=== PATIENT | male | born 1975 | race African-American/Black ===

== ENCOUNTER 2018-07-16 23:35 | Inpatient (IN) ==
[2018-07-17] MEDS ORDERED: NS 1,000 ML, NS 1,000 ML IV ONE ×2 (01:02)
[2018-07-17 01:49] LABS: BASO# 0.02 X1000 (0.0-0.2); BASO% 0.2 % (0.0-0.8); EOS# 0.28 X1000 (0.0-0.7); EOS% 3.2 % (0.0-10.0); HEMATOCRIT 44.9 % (42.0-52.0); HEMOGLOBIN 15.5 g/dL (14.0-18.0); LYMPH# 3.03 X1000 (1.2-3.4); LYMPH% 34.3 % (20.5-51.1); MCH 27.4 PG (27-31); MCHC 34.5 g/dL (33-37); MCV 79.5 FL (81-99); MONO# 0.91 X1000 (0.11-0.59); MONO% 10.3 % (1.7-9.3); MPV 9.2 FL (7.4-10.4); NEUT# 4.59 X1000 (1.4-6.5); PLT 280 X1000 (130-400); RBC 5.65 XMIL (4.7-6.1); WBC 8.83 X1000 (4.8-10.8)
[2018-07-17 01:52] LABS: URINE SOURCE CLEAN CATCH
[2018-07-17] MEDS: NS 1,000 ML IV SCH ×5 (01:53→21:25)
[2018-07-17 01:56] LABS: BILIRUBIN URINE NEGATIVE (NEGATIVE); BLOOD URINE TRACE (NEGATIVE); COLOR YELLOW; GLUCOSE URINE NEGATIVE (NEGATIVE); KETONE URINE NEGATIVE (NEGATIVE); LEUKOCYTES URINE NEGATIVE (NEGATIVE); NITRITE URINE NEGATIVE (NEGATIVE); PROTEIN URINE TRACE mg/dL (NEGATIVE); SP GRAVITY URINE 1.028; TURBIDITY URINE CLEAR (CLEAR); UR EPITHELIAL CELLS <10 /HPF (<10); URINE BACTERIA NEGATIVE /HPF; URINE RBC <10 /HPF (<10); URINE WBC <10 /HPF (<10); UROBILINOGEN URINE 2 mg/dL (NORMAL)
[2018-07-17 02:03] LABS: AGAP 14; ALB/GLOB RATIO 1.7; ALBUMIN 4.8 g/dL (3.5-5.0); ALKALINE PHOSPHATASE 101 U/L (32-122); BUN 24 mg/dL (8-22); CALCIUM 9.4 mg/dL (8.8-10.2); CHLORIDE 101 mmol/L (98-107); COSMO 286; CREATININE 1.3 mg/dL (0.7-1.2); ESTIMATED GFR > 60; GLUCOSE 150 mg/dL (70-104); GOT 42 U/L (10-34); GPT 33 U/L (10-44); POTASSIUM 3.7 mmol/L (3.5-5.1); SODIUM 140 mmol/L (136-145); TCO2 25 mmol/L (25-35); TOTAL BILIRUBIN 0.45 mg/dL (0.20-1.00); TOTAL PROTEIN 7.6 g/dL (6.3-8.3)
[2018-07-17 02:11] LABS: CK PROFILE 1630 U/L (24-204)
[2018-07-17 02:33] LABS: CK INDEX 0.5 (0.0-2.5); CK-MB 8.89 ng/mL (0.0-5.0)
--- NOTE | 2018-07-17 03:31 | PROVIDER DOCUMENTATION ---
This chart was entered by Taylor Albarado Scribe, acting as scribe for Nino Dowd MD. HPI-General Adult - General Chief Complaint: Heat Related Stated Complaint: DEHYDRATED Time Seen by Provider: 07/17/18 00:44 Source: patient Allergies/Adverse Reactions: Patient Allergies Allergy/AdvReac Type Severity Reaction Status Date / Time No Known Allergies Allergy Verified 12/03/17 00:59 Home Medications: Home Medication List Medication Instructions Recorded Confirmed Last Taken Type Cyclobenzaprine [Flexeril] 10 mg PO TID PRN PRN #10 tab 12/03/17 Unknown Rx Tramadol [Ultram] 50 mg PO Q6H PRN PRN #10 tab 12/03/17 Unknown Rx - History of Present Illness -Gen Adult Nature of Presenting Problems: 43 y/o male presents to ED with cough and generalized muscle cramps onset yesterday. Pt is alert and oriented. Location of Pain/Injury: reports: generalized Pain Radiation: reports: no radiation Quality of Pain: reports: cramping Severity: reports: mild Onset/Duration: reports: 24 hours ago Timing: reports: still present Context/Activities at Onset: reports: none Modifying Factors: improves with: nothing Associated Symptoms: reports: cough, other (generalized muscle cramps) Similar Symptoms Previously?: No Recently seen or treated by another doctor?: No Review of Systems - Adult - REVIEW OF SYSTEMS - ADULT Constitutional: denies: chills, fever Eyes: reports: no symptoms reported Ears, Nose, Mouth & Throat: reports: no symptoms reported Cardiovascular: denies: chest pain, palpitations Respiratory: reports: cough. denies: shortness of breath Gastrointestinal: denies: abdominal pain, diarrhea, nausea, vomiting Genitourinary: reports: no symptoms reported Musculoskeletal: reports: other (generalized muscle cramps). denies: back pain, joint pain Integumentary: reports: no symptoms reported Neurological: denies: dizziness/vertigo, seizure Psychiatric: reports: no symptoms reported Endocrine: reports: no symptoms reported Hematologic/Lymphatic: reports: no symptoms reported Allergic/Immunologic: reports: no symptoms reported All Other Systems: Reviewed and Negative Past History - Adult - PAST MEDICAL HISTORY-ADULT Review of Records: reports: Old Records Reviewed, Nursing Assessment Review, Medications Reviewed Major Childhood Illnesses: reports: denies history Cardiovascular: reports: HTN - PRIOR SURGERIES/PROCEDURES Surgical/Procedure History: reports: none - IMMUNIZATION STATUS Childhood Immunizations: See Nurse Assessment Flu Vaccine: See Nurse Assessment - FAMILY HISTORY Family History: reviewed, not pertinent - SOCIAL HISTORY Smoking: less than 1 pack/day Provider spent 3-5 mins advising pt. on dangers of tobacco.: Discussed manners to quit use, and f/u contacts for add'l counseling. Substance Use: none/never Alcohol Use Frequency: occasionally Living Situation: family Physical Exam-General - PHYSICAL EXAM-ADULT Initial Vital Signs Reviewed: Yes - CONSTITUTIONAL General Appearance: appears well, alert, no apparent distress - EYES Eyes: PERRL/EOMI, pink conjunctivae - HEAD, EARS, NOSE, MOUTH & THROAT HENMT: normocephalic/atraumatic, moist mucous membranes, normal ENT inspection - RESPIRATORY Respiratory: chest non-tender, lungs clear, normal breath sounds - CARDIOVASCULAR Cardiovascular: normal peripheral pulses, regular rate, rhythm - MUSCULOSKELETAL Back Exam: no CVA tenderness, no vertebral tenderness, other (diffuse muscular tenderness to palpation) Extremity: normal range of motion, normal gait, tenderness (diffuse muscular tenderness to palpation) - SKIN Integumentary: normal color, warm/dry - NEUROLOGIC Neurologic: grossly normal - PSYCHIATRIC Psych/Mental Status: normal mood/affect, normal thought content, normal thought process Progress - PLAN OF CARE/RESULTS Progress/Plan/Lab Results: Vital Signs - 8 hr 07/16/18 23:51 Temperature 98.1 F Pulse Rate 90 Respiratory Rate 18 Blood Pressure 124/86 O2 Sat by Pulse Oximetry 97 Orders Category Date Time Status CBC WITH DIFF [HEME] Stat Lab 07/17/18 01:02 Uncollected CK PROFILE [SP CHEM] Stat Lab 07/17/18 01:02 Uncollected COMPREHENSIVE METABOLIC PANEL [CHEM] Stat Lab 07/17/18 01:02 Uncollected URINALYSIS W/POSS RFLX CULT [URINALYSIS] Stat Lab 07/17/18 01:02 Uncollected 0.9% Sodium Chloride Inj [Ns] 1,000 ml Med 07/17/18 01:02 Active 0.9% Sodium Chloride Inj [Ns] 1,000 ml IV 999 mls/hr Laboratory Tests 07/17/18 07/17/18 00:05 01:45 WBC 8.83 RBC 5.65 Hgb 15.5 Hct 44.9 MCV 79.5 L MCH 27.4 MCHC 34.5 RDW Std Deviation 14.0 Plt Count 280 MPV 9.2 Immature Gran % (Auto) 0.0 Neut % (Auto) 52.0 Lymph % (Auto) 34.3 [place] % (Auto) 10.3 H Eos % (Auto) 3.2 Baso % (Auto) 0.2 Immature Gran # (Auto) 0.00 Neut # (Auto) 4.59 Lymph # (Auto) 3.03 [place] # (Auto) 0.91 H Eos # (Auto) 0.28 Baso # (Auto) 0.02 Urine Source CLEAN CATCH Urine Color YELLOW Urine Turbidity CLEAR Urine pH 6.0 Ur Specific [place] 1.028 Urine Protein TRACE A Ur Glucose (Stick) NEGATIVE Ur Ketones (Stick) NEGATIVE Urine Blood TRACE A Urine Nitrite NEGATIVE Urine Bilirubin NEGATIVE Urobilinogen Dipstick 2 A Urine Leukocytes NEGATIVE Urine WBC (Auto) <10 Urine RBC (Auto) <10 U Epithel Cells (Auto) <10 Urine Bacteria (Auto) NEGATIVE Result Diagrams: 07/17/18 00:05 07/17/18 00:05 - CONSULTS/PCP/HOSPITALIST Notification #1 *Consult/PCP/Hospitalist*: Enoch Time Discussed: 03:15 Consult Disposition: Will see in ED, Admit Departure - Departure Date of Disposition Decision: 07/17/18 Time of Disposition Decision: 02:30 DIAGNOSIS: Rhabdomyolysis Qualifiers: Rhabdomyolysis type: non-traumatic Qualified Code(s): M62.82 - Rhabdomyolysis Disposition: ADMITTED INPATIENT 09 Certified Medical Emergency: Emergent Condition: Good Referrals and Follow-Ups: Cayden Hernandez MD [Primary Care Provider] - Discharge Education: Steps to Quit Smoking, [id number] - Critical Care Note This patient required my direct & personal management of CC.: No Attestation - Physician/ SIRIA Attestation Patient care was provided by Advanced Practice Provider:: No The physician spent face to face time with patient:: Yes Advanced Practice Provider documentation review:: Supervising physician onsite and consulted in the evaluation and care of this patient. The physician did have a face to face encounter with the patient. This chart was documented by the indicated scribe, (Taylor Albarado, Bryce) and accurately reflects the services I performed and decisions made by , Nino Dowd MD, as attested by the provider's signature.
--- NOTE | 2018-07-17 05:22 | HISTORY AND PHYSICAL ---
PRIMARY CARE PHYSICIAN: Dr. Cayden Hernandez. CHIEF COMPLAINT: Muscles cramping. 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 States that he was having muscle cramps for the past 3 days. He states that it was extremely hot in the warehouse despite having fans. He felt weak and tired. He was drinking a lot of water, however, his muscles were still cramping. The patient subsequently had to come to the emergency department. He was evaluated. Laboratories drawn, which did show he had elevated creatine kinase suspicious for rhabdomyolysis. Due to his presenting symptoms, it was thought that he would need admission for further management. At the time of my examination, patient denied any headache, fever, chills, chest pain, shortness of breath, or any weight changes, but complained of muscle cramps. PAST MEDICAL HISTORY: Includes hypertension. PAST SURGICAL HISTORY: None. ALLERGIES: No known drug allergies. CURRENT MEDICATIONS: Norvasc 10 mg p.o. q.a.m., clonidine 0.1 mg p.o. b.i.d., [place] 10/325 one p.o. t.i.d., Ambien 10 mg p.o. at bedtime. SOCIAL HISTORY: A 20+ pack years history of smoking. History of alcohol use daily. Denies any illicit drug use. FAMILY HISTORY: No history of coronary disease. REVIEW OF SYSTEMS: Fourteen-point review of system is as in HPI. Other systems negative. PHYSICAL EXAMINATION: GENERAL: Cooperative, friendly male. He is resting comfortably now. VITAL SIGNS: Temperature 98.1 degrees, pulse 90, respirations 18, blood pressure 124/86. HEENT: Atraumatic, normocephalic. Extraocular movements intact. PERRLA. NECK: Supple. CHEST: Clear to auscultation. CARDIOVASCULAR: Regular rate and rhythm. S1, S2. ABDOMEN: Soft. Positive bowel sounds. EXTREMITIES: No edema. NEUROLOGIC: He is awake, alert, oriented x3. GENITOURINARY: No bladder distention. LABORATORIES AND STUDIES: Sodium 140, potassium 3.7, chloride 101, CO2 of 25, BUN is 24, creatinine 1.3. Glucose is 150, creatine kinase is 1630. WBCs 8.83, hemoglobin 15.5, hematocrit 44.9, platelets 218,000. ASSESSMENT: A 43-year-old male with a history of hypertension, who presented to the emergency department with 3 days history of having muscle cramps. 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 He was evaluated the emergency department. Laboratories were drawn and he had elevated creatine kinase. Subsequently, he will require admission for further management. 1. Heat exhaustion. 2. Dehydration. 3. Rhabdomyolysis. 4. Hypertension. PLAN: 1. We will admit patient to medical floor with telemetry. 2. Continue supportive treatment with IV fluids. Antiemetics as needed. 3. We will monitor his blood pressure closely. 4. We will continue to follow and reassess, make further recommendation based on patient's clinical course. cc: Ramon Kendall MD
[2018-07-17] MEDS ORDERED: ZOFRAN IV PRN (06:17)
[2018-07-17] MEDS: CATAPRES PO SCH ×2 (08:51→21:25)
[2018-07-17] MEDS: NORVASC PO SCH (08:51)
[2018-07-17] MEDS: NORCO-10 PO SCH ×3 (08:52→21:25)
[2018-07-18 07:27] LABS: BASO# 0.01 X1000 (0.0-0.2); BASO% 0.1 % (0.0-0.8); EOS# 0.33 X1000 (0.0-0.7); EOS% 4.2 % (0.0-10.0); HEMOGLOBIN 14.3 g/dL (14.0-18.0); LYMPH% 43.1 % (20.5-51.1); MCH 27.3 PG (27-31); MCHC 33.3 g/dL (33-37); MCV 82.1 FL (81-99); MONO# 0.83 X1000 (0.11-0.59); MONO% 10.5 % (1.7-9.3); MPV 9.5 FL (7.4-10.4); NEUT# 3.31 X1000 (1.4-6.5); NEUT% 42.1 % (42.2-75.2); PLT 266 X1000 (130-400); RBC 5.24 XMIL (4.7-6.1); RDW 14.5 % (11.5-14.5); WBC 7.88 X1000 (4.8-10.8)
[2018-07-18 07:50] LABS: AGAP 7; BUN 9 mg/dL (8-22); CALCIUM 8.6 mg/dL (8.8-10.2); CHLORIDE 107 mmol/L (98-107); CK PROFILE 1095 U/L (24-204); COSMO 275; CREATININE 0.9 mg/dL (0.7-1.2); ESTIMATED GFR > 60; GLUCOSE 103 mg/dL (70-104); POTASSIUM 4.3 mmol/L (3.5-5.1); SODIUM 138 mmol/L (136-145); TCO2 24 mmol/L (25-35)
[2018-07-18] MEDS: NORCO-10 PO SCH ×3 (08:10→22:05)
[2018-07-18] MEDS: CATAPRES PO SCH ×2 (08:11→22:05)
[2018-07-18] MEDS: NORVASC PO SCH (08:11)
[2018-07-18 08:31] LABS: CK INDEX 0.3 (0.0-2.5); CK-MB 3.76 ng/mL (0.0-5.0)
[2018-07-18] MEDS: NS 1,000 ML IV SCH ×2 (08:55→22:05)
--- NOTE | 2018-07-18 17:27 | PROGRESS NOTE ---
DATE: 07/18/2018 SUBJECTIVE: This patient seems to be doing better, but he is still complaining of generalized soreness, mostly muscular soreness. His urine looks more clear, but still a little bit concentrated. We will need to continue with more IV fluids. CK level is decreasing, and the kidney function normalized, but the CK is still high at 1095. CK-MB is normal today. Tomorrow hopefully we will send this patient home. OBJECTIVE: Vital Signs: Temperature 98.2 degrees, pulse 66, respiratory rate 18, blood pressure 134/83, oxygen saturation 98 on room air. HEENT: Head normocephalic. No trauma. PERRLA. Neck: Supple. No JVD. No masses. Central trachea. Chest: Clear to auscultation. No wheezing. No rales. Abdomen: Soft, nontender, nondistended. No hepatosplenomegaly. Extremities: No edema. No clubbing. No cyanosis. Neurological examination: The patient is alert. He is oriented x3. No focal deficits. LABORATORY DATA: WBC 7.8, hemoglobin 14.3, hematocrit 43, platelets 266,000. Sodium 138, potassium 4.3, chloride 107, bicarbonate 24, BUN 9, creatinine 0.9, glucose 103, calcium 8.6, CK 1095. ASSESSMENT: 1. Heat exhaustion. 2. Dehydration. 3. Rhabdomyolysis. 4. Hypertension. 5. Tobacco abuse. PLAN: Like I mentioned before, we will continue with IV fluids. Once the CK level is better, we will send this patient home likely tomorrow, kidney function normalized. We do have a previous creatinine from 2017 that was normal at 1, today 0.9, so likely this is his baseline. For his history of tobacco use, this patient has been highly advised against tobacco use, and we will continue with daily cessation education. Also, I recommended that he can not spend too much time in a hot environment. He needs to take some breaks and keep himself hydrated. cc: Josue Cleveland MD
[2018-07-19] MEDS: NS 1,000 ML IV SCH ×6 (04:51→18:52)
[2018-07-19 07:13] LABS: AGAP 9; BUN 11 mg/dL (8-22); CHLORIDE 104 mmol/L (98-107); COSMO 279; ESTIMATED GFR > 60; GLUCOSE 96 mg/dL (70-104); POTASSIUM 4.3 mmol/L (3.5-5.1); SODIUM 140 mmol/L (136-145); TCO2 27 mmol/L (25-35)
[2018-07-19 07:15] LABS: CK PROFILE 1507 U/L (24-204)
[2018-07-19] MEDS: CATAPRES PO SCH ×2 (08:26→21:21)
[2018-07-19] MEDS: NORVASC PO SCH (08:26)
[2018-07-19] MEDS: NORCO-10 PO SCH ×3 (08:26→21:25)
[2018-07-19 08:33] LABS: CK INDEX 0.2 (0.0-2.5); CK-MB 3.31 ng/mL (0.0-5.0)
[2018-07-19 11:17] LABS: CK INDEX 0.2 (0.0-2.5); CK-MB 4.04 ng/mL (0.0-5.0)
--- NOTE | 2018-07-19 15:39 | PROGRESS NOTE ---
DATE: 07/19/2018 SUBJECTIVE: This patient is feeling better. His body soreness is getting better also, some discomfort at the level of the upper extremities. His urine is clear but the CK level increased. I do believe it is because the patient has been walking and doing some activity, we will continue with IV fluids. Hopefully, this patient can be discharged in the morning tomorrow or late this afternoon if the CK level is trending down again. OBJECTIVE: Vital Signs: Temperature 98.5 degrees, pulse 72, respiratory rate 12, blood pressure 152/92, oxygen saturation 100% on room air. HEENT: Head normocephalic no trauma PERRLA. Neck: Supple. No JVD. No masses. Central trachea. Chest: Clear to auscultation. No wheezing. No rales. Abdomen: Soft, nontender, nondistended. No hepatosplenomegaly. Extremities: No edema no clubbing no cyanosis. Some tenderness at the level of the upper extremities close to the elbow/joint. Neurological: This patient is alert. He is oriented x3. No focal deficits. LABORATORY: Sodium 140, potassium 4.3, chloride 104, bicarbonate 27, BUN 11, creatinine 1, glucose 96, calcium 9. IMAGING: Chest x-ray showed worsened pulmonary edema. CK 1981. ASSESSMENT AND PLAN: 1. Heat exhaustion. 2. Dehydration. 3. Rhabdomyolysis. 4. Hypertension. 5. Tobacco abuse. PLAN: 1. Like I mentioned before, I will continue with IV fluids, I will monitor the CK level, the plan was to send this patient home today but the CK level increase likely due to some physical activity that this patient has been having. 2. He has urine is at baseline. 3. He has a history of tobacco use. We will continue with daily cessation education. 4. Also I recommended to this patient that he needs to avoid spending too much time in a hot environment, and he needs to take some breaks and keep himself hydrated. cc: Josue Cleveland MD
[2018-07-19 18:44] LABS: CK INDEX 0.2 (0.0-2.5); CK-MB 4.01 ng/mL (0.0-5.0)
[2018-07-20] MEDS: NS 1,000 ML IV SCH ×2 (01:00→07:59)
[2018-07-20 07:00] LABS: AGAP 8; BUN 9 mg/dL (8-22); CALCIUM 9.1 mg/dL (8.8-10.2); CHLORIDE 102 mmol/L (98-107); COSMO 273; ESTIMATED GFR > 60; GLUCOSE 100 mg/dL (70-104); POTASSIUM 4.3 mmol/L (3.5-5.1); SODIUM 137 mmol/L (136-145); TCO2 27 mmol/L (25-35)
[2018-07-20 07:01] LABS: CK PROFILE 1809 U/L (24-204)
[2018-07-20 07:35] LABS: CK INDEX 0.2 (0.0-2.5); CK-MB 3.36 ng/mL (0.0-5.0)
[2018-07-20 07:51] VITALS: BP 159/88
[2018-07-20] MEDS: NORCO-10 PO SCH (08:28)
[2018-07-20] MEDS: CATAPRES PO SCH (08:29)
[2018-07-20] MEDS: NORVASC PO SCH (08:29)
--- NOTE | 2018-07-20 15:42 | DISCHARGE SUMMARY ---
ADMISSION DATE: 07/17/2018 DISCHARGE DATE: 07/20/2018 DISCHARGE DIAGNOSES: 1. Rhabdomyolysis. 2. Dehydration. 3. Acute kidney injury. 4. Heat exhaustion. 5. Hypertension. 6. Tobacco abuse. 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 However, his muscles were still cramping, also as per the patient the urine was really dark and he was not peeing too much, patient presented to emergency department, he was evaluated. Laboratory showed a CK level that was elevated and also a BUN and creatinine that were elevated as well so basically we thought that this patient had rhabdomyolysis given his current presentation and the history, he was admitted and he was placed on IV fluids. Since the beginning he was complaining of muscle soreness, his urine was dark, then after getting the fluid the kidney function improved and actually is within normal limits, his urine also improved as well in color as well as the muscle cramps. The CK level was trending down but then when the patient started walking and doing some physical activity during this hospitalization the CK level increased again I believe due to the rest of the muscles that were injured during the work/hot environment but he was not complaining of muscle pain just some discomfort at the level of the elbows but no cramping and like I said the urine is completely clear and he has been having really good urine output. Since the CK level still a little bit elevated I recommended to go to his primary care doctor and prior to that I recommended to do a lab work this Saturday, a BMP and also a CK level. He seems to understand and he agreed with the plan, I also told him that he should not be working in the hot environment or doing a strong physical activity this week because he needs to recover first especially his muscles and he seems to understand this as well. His primary care doctor is Dr. Cayden Hernandez, he will need to see him this week to see if the kidney function and also the CK level are getting better. I told him not to start lifting weight or doing a strong physical activity like I mentioned before and he agreed with that. He needs to keep himself hydrated and drink plenty of water as well. Also told the patient to come back to the emergency department again if he has notice any muscle pain or cramps and also if he notices any change in his urine, if the urine output is low or color changes or any change that he noticed, he seems to understand that as well. OBJECTIVE: Vital Signs: Temperature 98.3 degrees, pulse 63, respiratory rate 18, blood pressure 159/88, oxygen saturation 100% on room air. HEENT: Head normocephalic. No trauma. PERRLA. Neck: Supple. No JVD. No masses. Central trachea. Chest: Clear to auscultation. No wheezing, no rales. Abdomen: Soft, nontender, nondistended. No hepatosplenomegaly. Extremities: No edema, no clubbing, no cyanosis. Neurological: The patient is alert and oriented x3. No focal deficit. LABORATORY: Sodium 137, potassium 4.3, chloride 102, bicarbonate 27, BUN 9, creatinine 1, glucose 100, calcium 9.1, CK 1800, CK-MB 3.3. DISCHARGE MEDICATIONS: Basically he will continue with his home medications including amlodipine 10 mg p.o. daily, clonidine 0.1 mg p.o. b.i.d., [place] 10 as directed 3 times a day and zolpidem tartrate 1 tablet p.o. at bedtime. FOLLOWUP: I recommended to go to Dr. Cayden Hernandez this week and also I gave him a prescription for a lab work for this Saturday07/23/2018 to evaluate his kidney function and also a CK level. Everything has been explained in detail to the patient, I also recommended to stop smoking. TIME SPENT: Discharging this patient and talking to the patient about all the plan around 40 minutes. cc: Josue Cleveland MD
== END 2018-07-20 13:04 | disposition home or self-care (01) | DRG 923 ==
LOC: ED 23:35 → SUATTDRO 07-17 05:37 → 4N 07-17 05:37
PROVIDERS: ATTEND Internal Medicine
CPT/HCPCS: 80048; 80053; 81001; 82550; 82553; 85025; 96360; 96361; 99285; A9270; J7030